=== PATIENT | female | born 1990 | race Caucasian/White ===

== ENCOUNTER 2020-05-16 20:40 | Emergency (ER) | payer OTHER ==
[~2020-05-16] VITALS: Ht 162.6 cm; Wt 55.8 kg
[2020-05-16] MEDS ORDERED: PRENATAL CAPLE1 EAC1 (21:56)
== END 2020-05-17 06:45 | disposition home or self-care (01) ==
LOC: ER 20:40
DX: O26.892 Other specified pregnancy related conditions, second trimester (principal); R55 Syncope and collapse; R42 Dizziness and giddiness; Z3A.16 16 weeks gestation of pregnancy; Z11.52 Encounter for screening for COVID-19

== ENCOUNTER 2020-09-18 04:18 | Inpatient (IN) | payer OTHER ==
[~2020-09-18] VITALS: Ht 162.6 cm; Wt 1.8 kg
[~2020-09-18 04:18] MED LIST: PRENATAL CAPLE1 EAC1
[2020-09-18] MEDS ORDERED: FUSION PLUS CA1 EACH PO (04:21)
== END 2020-09-20 15:56 | disposition home or self-care (01) | DRG 807 ==
LOC: LDR 04:18 → OB/GYN 04:18 → LDR 13:32 → OB/GYN 17:49
PROVIDERS: ADMIT Obstetrics & Gynecology; ATTEND Obstetrics & Gynecology
PROC: 10E0XZZ Delivery of Products of Conception, External Approach (ICD-10-PCS; principal; 2020-09-18)
PROC: 0W8NXZZ Division of Female Perineum, External Approach (ICD-10-PCS; 2020-09-18)
PROC: 4A1HXFZ Monitoring of Products of Conception, Cardiac Rhythm, External Approach (ICD-10-PCS; 2020-09-18)
DX: O42.013 Preterm premature rupture of membranes, onset of labor within 24 hours of rupture, third trimester (principal); Z37.0 Single live birth; Z3A.34 34 weeks gestation of pregnancy; Z20.822 Contact with and (suspected) exposure to COVID-19

== ENCOUNTER 2024-09-28 05:33 | Emergency (ER) | payer OTHER ==
[~2024-09-28] VITALS: Ht 162.6 cm; Wt 68.0 kg
[~2024-09-28 05:33] MED LIST changes: +FUSION PLUS CA1 EACH PO
[2024-09-28] MEDS ORDERED: ALBUTEROL SULFATE 3 ML/2.5 MG AMPUL.NEB IH SCH (08:00)
[2024-09-28 08:04] LABS: BASO % 0.8 % (0.1-1.2); EOS # 0.16 (0.04-0.54); EOS % 3.3 % (0.7-7.0); LYMPH # 2.33 (1.18-3.74); LYMPH % 48.2 % (19.3-53.1); MEAN PLATELET VOLUME 9.40 fl (9.4-12.4); MONO # 0.59 (0.24-0.82); NEUT # 1.70 (1.56-6.13); NEUT % 35.3 % (34.0-71.1); RED CELL DISTRIBUTION WIDTH 13.0 % (11.6-14.4)
[2024-09-28 08:07] LABS: MONO % 12.2 % (4.7-12.5)
[2024-09-28 08:52] LABS: COVID-19 AG NEGATIVE (NEGATIVE)
[2024-09-28] MEDS ORDERED: BENZONATATE200 M1 PO (09:21)
[2024-09-28] MEDS ORDERED: LEVALBUTER0.63 MG/3 IH (09:21)
[2024-09-28] MEDS ORDERED: ZYRTEC10 MG PO (09:21)
[2024-09-28] MEDS ORDERED: AZITHROMYCIN500 MG PO (09:21)
[2024-09-28] MEDS ORDERED: PEPCID AC20 MG PO (09:21)
[2024-09-28] MEDS ORDERED: NEO/POLYMYXIN/H10 M1 OPHT (09:24)
== END 2024-09-28 09:41 | disposition home or self-care (01) ==
LOC: ER 05:33
PROVIDERS: General Practice
DX: J02.9 Acute pharyngitis, unspecified (principal); R07.89 Other chest pain; R06.02 Shortness of breath; Z20.822 Contact with and (suspected) exposure to COVID-19; Z88.2 Allergy status to sulfonamides